=== PATIENT | female | born 2005 | race Two or more races ===

== ENCOUNTER 2024-10-21 15:53 | Emergency (ER) | payer MEDICAID ==
[~2024-10-21] VITALS: Ht 165.1 cm; Wt 66.2 kg
[2024-10-21 18:07] VITALS: TEMP 98.4
[2024-10-21] MEDS: METOPROLOL TARTRATE 25 MG TAB PO ONE (18:08)
[2024-10-21] MEDS: SODIUM CHLORIDE 0.9% 1,000 ML IV ONE (18:09)
[2024-10-21 18:15] VITALS: PULSE 109; RESP 14; O2SAT 98
--- NOTE | 2024-10-21 18:25 | ED.PDOC ---
HPI Allergic reaction HPI Comments 19-YEAR-OLD FEMALE COMPLAINING OF INTERMITTENT RASH FOR THE LAST TWO WEEKS. STATES HE HAS BEEN GETTING HIVES IT COMES WITH A DAY AND THEN GO AWAY. STATES SHE NORMALLY WAKES UP WITHOUT HIM. SAYS SHE HAS BEEN TAKING BENADRYL AND ZYRTEC. PATIENT DOES REPORT A HISTORY OF ANXIETY. STATES NO NEW FOODS NO NEW MEDICATIONS. BENADRYL AND ZYRTEC ONLY MILDLY HELP. DENIES ANY TROUBLE BREATHING. Chief Complaint: Rash Time Seen by MD: 16:08 Primary Care Provider: UNKNOWN Reviewed Notes: Nurses Notes Allergies: Coded Allergies: NO KNOWN ALLERGIES (Unverified , 10/21/24) Information Source: Patient Mode of Arrival: Ambulatory Severity: Mild Past Medical History PAST MEDICAL HISTORY: Anxiety, Denies Surgical History: Denies all surgeries VENDING MECHANIC History: No Pertinent VENDING MECHANIC History Constitutional: denies: chills, diaphoresis, fatigue, fever, malaise, sweats, weakness, others EENTM: denies: blurred vision, double vision, ear bleeding, ear discharge, ear drainage, ear pain, ear ringing, eye pain, eye redness, hearing loss, mouth pain, mouth swelling, nasal discharge, nose bleeding, nose congestion, nose pain, photophobia, tearing, throat pain, throat swelling, voice changes, others Respiratory: denies: cough, hemoptysis, orthopnea, SOB at rest, shortness of breath, SOB with excertion, stridor, wheezing, others Cardiovascular: denies: chest pain, dizzy spells, diaphoresis, Dyspnea on exertion, edema, irregular heart beat, left arm pain, lightheadedness, palpitations, PND, syncope, others Gastrointestinal: denies: abdomen distended, abdominal pain, blood streaked bowels, constipated, diarrhea, dysphagia, difficulty swallowing, hematemesis, melena, nausea, poor appetite, poor fluid intake, rectal bleeding, rectal pain, vomiting, others Genitourinary: denies: abnormal vagina bleeding, burning, dyspareunia, dysuria, flank pain, frequency, hematuria, incontinence, pain, , vagina discharge, urgency, others Neurological: denies: dizziness, fainting, headache, left sided numbness, left sided weakness, numbness, paresthesia, pre-existing deficit, right sided num bness, right sided weakness, seizure, speech problems, tingling, tremors, weakness, others Musculoskeletal: denies: back pain, gout, joint pain, joint swelling, muscle pain, muscle stiffness, neck pain, others Integumetry: reports: rash Physical Exam General Appearance: No Apparent Distress, Normal HEENT: Normal ENT Inspection, Pharynx Normal, TMs Normal Neck: Full Range of Motion, Non-Tender, Normal, Normal Inspection Respiratory: Chest Non-Tender, Lungs Clear, No Accessory Muscle Use, No Respiratory Distress, Normal Breath Sounds Cardiovascular: No Edema, No JVD, No Murmur, No Gallop, Normal Peripheral Pulses, Regular Rate/Rhythm Breast Exam: Deferred Gastrointestinal: No Organomegaly, Non Tender, No Pulsatile Mass, Normal Bowel Sounds, Soft Genitalia: Deferred Pelvic: Deferred Rectal: Deferred Extremities: No calf tenderness, Normal capillary refill, Normal inspection, Normal range of motion, Non-tender, No pedal edema Musculoskeletal : Apperance: Normal Neurologic: Alert, scuba instructor II-XII nml as Tested, No Motor Deficits, Normal Affect, Normal Mood, No Sensory Deficits Cerebellar Function: Normal Reflexes: Normal Skin: Dry, Normal Color, Rash (FLIGHT ERYTHEMIC RASH NOTED ON BILATERAL FOREARMS. BLANCHING.), Warm Lymphatic: No Adenopathy Was a procedure done? Was a procedure done?: No Differential diagnosis (all) Differential Diagnosis: Anaphylaxis, Angioedema, Bronchospasm, Contact Dermatitis, Drug Reaction, Hypotension X-Ray, Labs, Meds, VS Vital Signs Date Time Temp Pulse Resp B/P (MAP) Pulse Ox O2 Delivery O2 Flow Rate FiO2 10/21/24 18:15 109 14 98 Room Air* 0 21 10/21/24 18:08 109 132/75 10/21/24 18:07 98.4 109 20 132/75 (94) 98 98.4 10/21/24 16:04 99.1 136 20 152/125 (134) 95 Current Medications Medications (Trade) Dose Ordered Sig/Linnette Route Start Time Stop Time Status Last Admin Sodium Chloride 1,000 ml @ 1,000 mls/hr Q1H ONCE IV 10/21/24 16:15 10/21/24 17:14 DC 10/21/24 18:09 X-Ray, Labs, Meds, VS Comment IMAGING: X-RAYS AND CT SCANS WERE REVIEWED AND INTERPRETED BY THIS PROVIDER, IMAGING SHOWS NO FRACTURES AND NO PATHOLOGICAL DISEASE. PENDING RADIOLOGY REVIEW. LABORATORY: LABS REVIEWED AND INTERPRETED BY THIS PROVIDER. NO SIGNIFICANT ABNORMALITIES NOTED. PATIENT HAS PRIOR MEDICAL VISITS REVIEWED. MED RECONCILIATION PERFORMED VITAL SIGNS REVIEWED Time of 1ST Reevaluation: 18:24 Reevaluation 1ST: Improved Patient Education/Counseling: Diagnosis, Treatment, Need For Follow Up (PATIENT ADVISED TO FOLLOW-UP IN THE EMERGENCY ROOM IN THE NEXT 24 TO 48 HOURS IF SYMPTOMS DO NOT IMPROVE. ADVISED FOLLOW-UP WITH PCP IN THE NEXT 3 TO 5 DAYS. PATIENT VERBALIZED UNDERSTANDING. ) Family Education/Counseling: Diagnosis Departure 1 Departure Time of Disposition: 18:24 Impression: Primary Impression: Tachycardia Additional Impressions: Anxiety Urticaria multiforme Disposition: 01 HOME / SELF CARE / HOMELESS Condition: Fair Discharged With: Self Critical Care Note Critical Care Time?: No Stability Stability form required: No Heart Score Heart Score: Heart Score Response (Comments) Value History N/A 0 EKG N/A 0 Age N/A 0 Risk Factors N/A 0 Troponin N/A 0 Total 0 TIP REID Oct 21, 2024 18:25
[2024-10-21 19:50] VITALS: BP 110/65; PULSE 74; RESP 16; O2SAT 100
== END 2024-10-21 19:52 | disposition home or self-care (01) ==
LOC: ER 15:53
DX: L50.9 Urticaria, unspecified (principal); R00.0 Tachycardia, unspecified; F41.9 Anxiety disorder, unspecified
CPT/HCPCS: 96360; 99283; J7030

== ENCOUNTER 2025-01-14 16:19 | Emergency (ER) | payer MEDICAID ==
[~2025-01-14] VITALS: Ht 172.7 cm; Wt 72.7 kg
[2025-01-14] MEDS: SODIUM CHLORIDE 0.9% 1,000 ML IV ONE (16:30)
--- NOTE | 2025-01-14 16:41 | ED.PDOC ---
HPI Allergic reaction HPI Comments 19 year old female DAVE presents to the ED with chief complaint of allergic reaction. Patient reports that she started to experience generalized urticaria with associated SOB and itchiness for the past 2 days since leaving from a trip in [place]. Patient relays that she has an medical laboratory manager referral from her PCP due to jeny cardoso previous allergic reaction, but has not made an appointment yet. Patient states that she was exposed to known allergens such as wheat, milk, and cats while in [place]. EMS notes patient took loratadine in the morning with no relief and they had provided 50mg of Benadryl IM and a breathing treatment with relief noted. Patient denies any throat swelling, dizziness, chest pain, or N/V. Chief Complaint: Allergic Reaction Time Seen by MD: 16:36 Primary Care Provider: UNKNOWN Reviewed Notes: Nurses Notes, Check Clerk Notes, Medications, Allergies Allergies: Coded Allergies: NO KNOWN ALLERGIES (Unverified , 10/21/24) Information Source: Patient, Emergency Med Personnel Mode of Arrival: EMS Severity: Moderate Rash: Moderate SOB: Moderate Pruritus: Moderate Timing: Days Duration: Since onset Prehospital treatment: None Location: Generalized Exposed to: Animal, Food Developed: Generalized erythema, Pruritus, Rash, Shortness of Breath History of: Urticaria, Prior Similar Episodes Modyifying Factors: Diphenhydramine Past Medical History PAST MEDICAL HISTORY: Anxiety Surgical History: Denies all surgeries LINE REPAIRER TOWER History: No Pertinent LINE REPAIRER TOWER History Family History Family History: Reviewed,noncontributory to illness Social History Smoker: Non-Smoker Alcohol: Occasionally Drugs: Denies Drug Use Lives In: Home Constitutional: denies: chills, diaphoresis, fatigue, fever, malaise, sweats, weakness, others EENTM: denies: blurred vision, double vision, ear bleeding, ear discharge, ear drainage, ear pain, ear ringing, eye pain, eye redness, hearing loss, mouth pain, mouth swelling, nasal discharge, nose bleeding, nose congestion, nose pain, photophobia, tearing, throat pain, throat swelling, voice changes, others Respiratory: reports: shortness of breath; denies: cough, hemoptysis, orthopnea, SOB at rest, SOB with excertion, stridor, wheezing, others Cardiovascular: denies: chest pain, dizzy spells, diaphoresis, Dyspnea on exertion, edema, irregular heart beat, left arm pain, lightheadedness, palpitations, PND, syncope, others Gastrointestinal: denies: abdomen distended, abdominal pain, blood streaked bowels, constipated, diarrhea, dysphagia, difficulty swallowing, hematemesis, melena, nausea, poor appetite, poor fluid intake, rectal bleeding, rectal pain, vomiting, others Genitourinary: denies: abnormal vagina bleeding, burning, dyspareunia, dysuria, flank pain, frequency, hematuria, incontinence, pain, , vagina discharge, urgency, others Neurological: denies: dizziness, fainting, headache, left sided numbness, left sided weakness, numbness, paresthesia, pre-existing deficit, right sided numbness, right sided weakness, seizure, speech problems, tingling, tremors, weakness, others Musculoskeletal: denies: back pain, gout, joint pain, joint swelling, muscle pain, muscle stiffness, neck pain, others Integumetry: reports: rash; denies: bruises, change in color, change in hair/nails, dryness, laceration, lesions, lumps, wounds, others Allergic/Immunocompromised: reports: Hives, Itching; denies: Difficulty Healing, Frequent Infections, others Hematologic/Lymphatic: denies: anemia, blood clots, easy bleeding, easy bruising, swollen glands, others Endocrine: denies: excessive hunger, excessive sweating, excessive thirst, excessive urination, flushing, intolerance to cold, intolerance to heat, unexplained weight gain, unexplained weight loss, others Psychiatric: denies: anxiety, bipolar disorder, depression, hopeless, panic disorder, schizophrenia, sleepless, suicidal, others All Other Systems: Reviewed and Negative Physical Exam General Appearance: No Apparent Distress, Normal HEENT: Normal ENT Inspection, Pharynx Normal, TMs Normal Neck: Full Range of Motion, Non-Tender, Normal, Normal Inspection Respiratory: Chest Non-Tender, Lungs Clear, No Accessory Muscle Use, No Respiratory Distress, Normal Breath Sounds Cardiovascular: No Edema, No JVD, No Murmur, No Gallop, Normal Peripheral Pulses, Regular Rate/Rhythm Breast Exam: Deferred Gastrointestinal: No Organomegaly, Non Tender, No Pulsatile Mass, Normal Bowel Sounds, Soft Genitalia: Deferred Pelvic: Deferred Rectal: Deferred Extremities: No calf tenderness, Normal capillary refill, Normal inspection, Normal range of motion, Non-tender, No pedal edema Musculoskeletal : Apperance: Normal Neurologic: Alert, vascular ultrasound technician II-XII nml as Tested, No Motor Deficits, Normal Affect, Normal Mood, No Sensory Deficits Cerebellar Function: Normal Reflexes: Normal Skin: Dry, Warm, Other (Diffuse urticaria) Lymphatic: No Adenopathy Was a procedure done? Was a procedure done?: No Differential diagnosis (all) Differential Diagnosis: Urticaria X-Ray, Labs, Meds, VS Vital Signs Date Time Temp Pulse Resp B/P (MAP) Pulse Ox O2 Delivery O2 Flow Rate FiO2 01/14/25 18:00 121 18 108/58 (75) 99 01/14/25 17:30 128 16 99 Room Air* 0 21 01/14/25 17:00 98.9 128 16 109/57 (74) 99 98.9 01/14/25 16:42 99.6 130 18 110/72 (85) 98 99.6 Current Medications Medications (Trade) Dose Ordered Sig/Linnette Route Start Time Stop Time Status Last Admin Sodium Chloride 1,000 ml @ 1,000 mls/hr Q1H ONCE IV 01/14/25 16:30 01/14/25 17:29 DC 01/14/25 16:30 Methylprednisolone Sodium Succinate (Solu Medrol) 125 mg ONCE ONCE IV 01/14/25 16:45 01/14/25 16:46 DC 01/14/25 17:00 Famotidine (Pepcid Injection) 20 mg ONCE ONCE IV 01/14/25 16:45 01/14/25 16:46 DC 01/14/25 17:00 Time of 1ST Reevaluation: 17:36 Reevaluation 1ST: Improved Patient Education/Counseling: Diagnosis, Treatment Family Education/Counseling: No Family Present Additional Information Reviewed patient's previous visit(s): 10/21/24 for tachycardia The following tests were ordered, and results were reviewed by me: EKG Additional information was gathered from interviewing the following independent historian: EMS I reviewed and agreed with the following test results read by other provider: None I discussed treatments and results with medical personnel and: PATIENT Comprehensive systems review obtained and negative except for what is stated in the HPI. Departure 1 Departure Time of Disposition: 19:40 (Patient presented with a allergic reaction. Patient received IV fluids steroids and Pepcid . Patient had received Benadryl by EMS.) Impression: Primary Impression: Allergic reaction Qualified Codes: T78.40XA - Allergy, unspecified, initial encounter Disposition: HOME / SELF CARE / HOMELESS Condition: Stable Additional Instructions: You had an allergic reaction. You received medications in the ER. You were prescribed steroids and an epinephrine pain. Please use as directed. You should follow up with your regular doctor within one week to ensure you are doing better. You may benefit from an appointment with an Mechanical Equipment Test Engineer. If your symptoms worsen, or you have any other concerns then please return to the ER. e-Prescriptions Epinephrine (Anaphylaxis) (Auvi-Q) 0.1 Mg/0.1 Ml Inj 0.1 MG IJ O PRN for 1 Day, #1 INJ Prov: JOHAN REESE MD 01/14/25 Prednisone (Prednisone) 20 Mg Tab 40 MG PO DAILY for 5 Days, #10 MG Prov: JOHAN REESE MD 01/14/25 Discharged With: Self Critical Care Note Critical Care Time?: No Stability Stability form required: No Heart Score Heart Score: Heart Score Response (Comments) Value History N/A 0 EKG N/A 0 Age N/A 0 Risk Factors N/A 0 Troponin N/A 0 Total 0 I personally scribed for JOHAN REESE MD ([email or web address]) on 01/14/25 at 16:41. Electronically submitted by Jered Gomez ([email or web address]). JOHAN REESE MD January 14, 2025 16:41
[2025-01-14 17:00] VITALS: TEMP 98.9
[2025-01-14] MEDS: methylPREDNISolone SOD SUCC 125 MG/2 ML VL IV ONE (17:00)
[2025-01-14] MEDS: FAMOTIDINE (10MG/ML) 2ML VL IV ONE (17:00)
[2025-01-14 17:30] VITALS: PULSE 128; RESP 16; O2SAT 99
[2025-01-14 18:00] VITALS: BP 108/58; PULSE 121; RESP 18; O2SAT 99
[2025-01-14] MEDS ORDERED: EPIN0.1I11 IJ (19:42)
[2025-01-14] MEDS ORDERED: PRED20TA2 PO (19:42)
[2025-01-14] MEDS: ONDANSETRON HCL 4 MG/2 ML VIAL IV ONE (20:03)
--- NOTE | 2025-01-15 10:28 | ECG ---
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
== END 2025-01-14 20:06 | disposition home or self-care (01) ==
LOC: EDBD 16:19 → ER 16:24
DX: T78.40XA Allergy, unspecified, initial encounter (principal); F41.9 Anxiety disorder, unspecified; Z79.899 Other long term (current) drug therapy; X58.XXXA Exposure to other specified factors, initial encounter
CPT/HCPCS: 93005; 96361; 96374; 96375; 99284; J2405; J2919; J3490; J7030